=== PATIENT | female | born 2000 ===

== ENCOUNTER 2025-03-08 12:52 | Emergency (ER) | payer SELFPAY ==
[~2025-03-08] VITALS: Ht 170.2 cm; Wt 72.4 kg
[2025-03-08 12:56] VITALS: BP 134/90; PULSE 114; RESP 20; TEMP 99.5; O2SAT 99
== END 2025-03-08 16:18 | disposition left against medical advice (07) ==
LOC: ER 12:53
DX: F10.90 Alcohol use, unspecified, uncomplicated (principal); Y90.9 Presence of alcohol in blood, level not specified; Z53.21 Procedure and treatment not carried out due to patient leaving prior to being seen by health care provider